=== PATIENT | female | born 1990 | race Caucasian/White ===

== ENCOUNTER 2016-12-08 10:42 | Day surgery (SDC) | payer BC ==
[2016-12-08] VITALS (25 sets, daily range): BP systolic 101–144; BP diastolic 63–87; PULSE 76–110; RESP 10–21; Ht 160 cm; Wt 93.0 kg
[~2016-12-08] VITALS: Ht 160 cm; Wt 93.0 kg
[~2016-12-08 10:42] MED LIST: GLYCOPYRROLATE 1 MG INJ ONE; GLYCOPYRROLATE 1 MG TAB ONE; NEOSTIGMINE 3 MG/3 ML SYRINGE ONE
[2016-12-08] MEDS ORDERED: ROPIVACAINE 0.5 % 30 ML VIAL ONE ×2 (11:50→11:53)
[2016-12-08] MEDS ORDERED: MIDAZOLAM 1 MG/ML 2 ML INJ ONE (11:50)
[2016-12-08] MEDS ORDERED: FENTAnyl 50 MCG/ML VIAL ONE ×2 (11:50→16:50)
--- NOTE | 2016-12-08 11:51 | HPN ---
Date/Time of Note Date/Time of Note DATE: 12/08/16 TIME: 11:51 Interval H&P Admission Note Pt. seen H&P reviewed: No system changes CARLOZ CASTILLO MD Dec 08, 2016 11:51
[2016-12-08] MEDS ORDERED: BUPIVACAINE 0.5% (SDV) 30 ML INJ ONE (11:53)
[2016-12-08] MEDS ORDERED: POLYMYXIN/BACITRACIN 1L IRRIG ONE (11:53)
[2016-12-08] MEDS ORDERED: OXYCODONE/ACETAMINOPHEN (5/325) TAB PO PRN (12:00)
[2016-12-08] MEDS ORDERED: morphine 2 MG INJ IV PRN (12:00)
[2016-12-08] MEDS ORDERED: POLYMYXIN/BACITRACIN 1L IRRIG IRR ONE (14:00)
[2016-12-08] MEDS ORDERED: NEOMYC/POLYMYX/BACIT 30 GM OINT ONE (15:01)
[2016-12-08] MEDS ORDERED: PROPOFOL 20 ML ONE (15:14)
[2016-12-08] MEDS ORDERED: ROCURONIUM 50 MG INJ ONE (15:14)
[2016-12-08] MEDS ORDERED: LIDOCAINE 2% (SDV) 5 ML INJ ONE (15:14)
[2016-12-08] MEDS ORDERED: ROPIVACAINE 0.5 % 30 ML VIAL INJ ONE (15:15)
[2016-12-08] MEDS ORDERED: CEFAZOLIN 1 GM INJ ONE (15:15)
[2016-12-08] MEDS ORDERED: ONDANSETRON 4 MG INJ ONE (15:16)
[2016-12-08] MEDS ORDERED: METOCLOPRAMIDE 10 MG INJ ONE (15:16)
[2016-12-08] MEDS ORDERED: NEOMYC/POLYMYX/BACIT 30 GM OINT TOP ONE (15:21)
--- NOTE | 2016-12-08 15:56 | OPR ---
Date/Time of Note Date/Time of Note DATE: 12/08/16 TIME: 15:52 Operative Report Procedure Date: Dec 08, 2016 Preoperative Diagnosis Left ankle trimalleolar ankle fracture Postoperative Diagnosis Left ankle trimalleolar ankle fracture Operation Performed Left ankle arthroscopy with extensive debridement Left ankle bimalleolar ankle fracture open reduction internal fixation in the setting of a trimalleolar ankle fracture Surgeon: CARLOZ CASTILLO MD special education assistant: CARLOZ BERGER MD Anesthesia Type: general, other (Popliteal block and local saphenous block) Anesthesiologist: WENDY MIGUEL MD Tourniquet Time: 75 min at 250 mmHg Estimated Blood Loss: minimal Transfusion Required: no Specimen: none Grafts/Implants Trimed sidewinder fibular plate 4.0 partially-threaded cancellus screws x 2 Complications: no Pt Condition Post Procedure: stable Disposition: PACU Indications Patient is a 26-year-old female who sustained a left ankle fracture dislocation and given the displacement of the bimalleolar component of the trimalleolar ankle fracture patient was indicated for surgery. Operative\Procedure Findings Risk Note: Patient was explained the risks and benefits of surgery and the patient's [place] language including not limited to infection, bleeding, injury to blood vessels, nerves, ligaments or tendons. Risks of anesthesia, deep vein thrombosis and need for reduce future surgery. Patient acknowledged these risk by signing the surgical consent form. Procedure Description The patient was met in the preoperative holding area, marked with the correct operative extremity confirmed with both patient and consent. The patient was then brought back in the operative theater, placed supine on operative table, given preoperative antibiotics and preoperative regional block anesthesia. The patient was then placed in the arthroscopic thigh murray with all bony prominences well padded with a nonsterile tourniquet placed on the operative extremity. The patient was then prepped and draped in the normal sterile fashion. All parties in the room did a timeout and everyone agreed it was the correct patient, and extremity and procedure. Initial distraction was placed across the joint and the superficial peroneal nerve had been marked out prior to distraction, and using extreme caution to avoid any injury to the neurovascular structures, the anteromedial, anterolateral, and posterolateral portals were created in the standard fashion. The arthroscope was brought into the ankle and a 21-point exam was performed showing extensive hemorrhagic scar tissue and synovitis in the ankle with extensive scar tissue in both the medial, lateral, posterior and anterior gutters. A The syndesmosis was extensively debrided. Also noted was the deep deltoid which was completely ruptured and visible in the medial gutter. After thorough debridement of the anterior medial, lateral, posterior and anterior gutters. After this was done, the ankle was irrigated thoroughly with normal saline and the arthroscopes were removed. At this point, the thigh murray was removed and the patient was well padded under both extremities and patient was then reprepped and draped, and all gloves and instruments were changed. Attention was then turned initially to the distal fibular fracture. An incision was made over the the fibula. The incision was taken down to the fibula with care taken to avoid injury to the neurovascular structures. The fracture was identified and reduced and fixated with a 1/3 tubular fibular plate and fibula was reduced and held out to show that there was fibular length and alignment and rotation had been re-achieved it was fixated accordingly. Once this was shown, the wound was irrigated thoroughly. A manual external rotation stress xray was performed showing no syndesmosis widening. Attention was then brought over to the medial aspect of the ankle and incision was taken down over the medial aspect of the ankle and the fracture was debrided thoroughly and reduced and then to 4.0 mm partially-threaded cannulated screws were placed across the fracture site. Fluoroscopy confirmed that the medial malleolar ankle fracture was reduced appropriately and the mortise was well aligned in both the AP, lateral, oblique position. All wounds were thoroughly irrigated and closed with initially 2-0 Vicryl, followed by 3-0 Monocryl followed by 3-0 nylon in a vertical mattress fashion. All wounds were dressed with Xeroform, antibiotic ointment, 4 x 4s, 5 ABDs were placed and the patient was placed in a well-padded short leg splint. Tourniquet had been brought down prior to this and hemostasis had been achieved prior to the wound closure. The wounds were irrigated thoroughly prior to closure as well. At the end the case the toes are warm and well perfused and capillary refill was brisk. All sponge and needle counts were correct. SIGNAL CONSTRUCTOR NOTE: There was a need for an orthopedic surgical assistant certified during this case in order to hold the limb in the proper position and assist with reduction. Without the use of an orthopedic specialist the case would have been extensively longer and more complex. CARLOZ CASTILLO MD Dec 08, 2016 15:56
[2016-12-08] MEDS ORDERED: DIPHENHYDRAMINE 50 MG INJ ONE (16:49)
[2016-12-08] MEDS: FENTAnyl 50 MCG/ML VIAL IV PRN ×3 (16:51→17:06)
[2016-12-08] MEDS: DIPHENHYDRAMINE 50 MG INJ IV PRN ×6 (16:51→17:05)
== END 2016-12-08 18:35 | disposition home or self-care (01) ==
LOC: SDS 10:42 → SUR 10:42
PROVIDERS: ATTEND Orthopaedic Surgery
DX: S82.852A Displaced trimalleolar fracture of left lower leg, initial encounter for closed fracture (principal); X58.XXXA Exposure to other specified factors, initial encounter; Y92.89 Other specified places as the place of occurrence of the external cause; I10 Essential (primary) hypertension; E66.01 Morbid (severe) obesity due to excess calories; Z68.36 Body mass index [BMI] 36.0-36.9, adult
CPT/HCPCS: 27822; 29898; 73610; C1713; J0690; J1200; J2250; J2405; J2710; J2795; J3010; Z7512; Z7610; J2765